=== PATIENT | male | born 1985 | race American Indian/Alaskan Native ===

== ENCOUNTER 2018-08-16 15:14 | Emergency (ER) | payer MEDICAID ==
[2018-08-16] MEDS ORDERED: Albuterol-Ipratrop 3 mg / 0.5 (3 ml) UD INH STA (16:34)
[2018-08-16] MEDS ORDERED: Albuterol-Ipratrop 3 mg / 0.5 (3 ml) UD ONE (16:51)
[2018-08-16 17:10] VITALS: BP 128/75; PULSE 68; RESP 20; TEMP 98.8; O2SAT 96
--- NOTE | 2018-08-16 17:54 | RAD ---
Date of service: 08/16/2018 HISTORY: Cough, rhonchi and right back pain COMPARISON: No prior. TECHNIQUE: Chest PA and lateral views FINDINGS: LUNGS: No active pulmonary disease. PLEURA: No significant pleural effusion identified. No pneumothorax apparent. CARDIOVASCULAR: No aortic atherosclerotic calcification present. Normal cardiac size. No pulmonary vascular congestion. OSSEOUS STRUCTURES: No significant abnormalities. VISUALIZED UPPER ABDOMEN: Normal. OTHER FINDINGS: None. IMPRESSION: No active disease.
--- NOTE | 2018-08-16 18:02 | C.PDOC ---
History Of Present Illness 33 year old male presents to ED with complaint of cough with green sputum, right upper back pain, subjective fever, nausea that began 2 days ago. Patient is a smoker. He denies vomiting and diarrhea. Time Seen by Provider: 08/16/18 15:56 Chief Complaint (Nursing): Cough, Cold, Congestion History Per: Patient History/Exam Limitations: no limitations Onset/Duration Of Symptoms: Days (2) Current Symptoms Are (Timing): Still Present Past Medical History Reviewed: Historical Data, Nursing Documentation, Vital Signs Vital Signs: Last Vital Signs Temp 98.8 F 08/16/18 17:08 Pulse 68 08/16/18 17:08 Resp 20 08/16/18 17:08 BP 128/75 08/16/18 17:08 Pulse Ox 96 08/16/18 17:08 Primary Care Provider: FAMILY PROVIDER,NO - Medical History PMH: No Chronic Diseases Surgical History: No Surg Hx - [facility] Procedures OTHER SKIN & SUBQ I D (11/14/12) Family History: States: Unknown Family Hx - Social History Hx Tobacco Use: Yes Hx Alcohol Use: No (DENIED) Hx Substance Use: No (DENIED) - Immunization History Hx Tetanus Toxoid Vaccination: No Hx Influenza Vaccination: No Hx Pneumococcal Vaccination: No Review Of Systems Constitutional: Positive for: Fever. Negative for: Chills, Weakness ENT: Negative for: Nose Discharge, Nose Congestion Respiratory: Positive for: Cough, Sputum (green in nature) Gastrointestinal: Positive for: Nausea. Negative for: Vomiting, Abdominal Pain Musculoskeletal: Positive for: Back Pain (right upper back) Physical Exam - Physical Exam Appears: Non-toxic, No Acute Distress, Other (uncomfortable) Skin: Normal Color, Warm, Dry Head: Atraumatic, Normacephalic Neck: Normal ROM, Supple Chest: Symmetrical, No Deformity Cardiovascular: Rhythm Regular, No Murmur Respiratory: No Accessory Muscle Use, No Rales, Rhonchi (scattered bilaterally, rhonchi clear with coughing), No Wheezing Gastrointestinal/Abdominal: Soft, No Tenderness Back: No Vertebral Tenderness, Paraspinal Tenderness (upper back tenderness) Extremity: Capillary Refill (<2 seconds) Neurological/Psych: Oriented x3, Normal Speech, Normal Cognition ED Course And Treatment O2 Sat by Pulse Oximetry: 96 (in RA) Pulse Ox Interpretation: Normal - Radiology CXR: Viewed By Me, Read By Radiologist CXR Interpretation: Yes: No Acute Disease Medical Decision Making Medical Decision Making: Impression: 33 year old male presents to ED with complaint of cough with green sputum, right upper back pain, subjective fever, nausea that began 2 days ago Initial Plan: CXR Duoneb INH Motrin PO Zofran PO pt with rhonchorous cough, generalized weakness, nausea x 2-3 days. cxr neg. feels better after zofran and duo neb. no wheezin chelsie exam, less coughing. d/c with zofran and albuterol mdi Disposition Counseled Patient/Family Regarding: Studies Performed, Diagnosis, Need For Followup, Rx Given - Disposition Referrals: [facility] [Outside] [facility] [Outside] Disposition: HOME/ ROUTINE Disposition Time: 18:12 Condition: IMPROVED Additional Instructions: Use inhaler 2 puffs every 6-8 hours for cough. Take anti nausea medicine before meals if needed. Stop smoking. Follow up with medical linic or your doctor in 1-2 days. Return to ER for nay worse symptoms. Take Tylenol or MOtrin or pain if needed. 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 (Mahi Quinones) - Scribe Statement The provider has reviewed the documentation as recorded by the Scribe (Mahi Quinones) All medical record entries made by the Scribe were at my direction and personally dictated by me. I have reviewed the chart and agree that the record accurately reflects my personal performance of the history, physical exam, medical decision making, and the department course for this patient. I have also personally directed, reviewed, and agree with the discharge instructions and disposition.
== END 2018-08-16 18:19 | disposition home or self-care (01) ==
LOC: C.ER 15:14
DX: J40 Bronchitis, not specified as acute or chronic (principal)